=== PATIENT | female | born 1990 | race Caucasian/White ===

== ENCOUNTER → 2021-11-25 | Outpatient (CLI) | payer OTHER ==
[~2021-11-25] MED LIST: MULTI-VITAMIN1 EACH PO; VITAMIN D325 MC6 PO; ZITHROMAX500 MG PO; ZYRTEC10 MG PO
[2021-11-25 14:09] LABS: RED BLOOD COUNT 4.72 M/UL (4.00-5.10); WHITE BLOOD COUNT 12.8 K/UL (4.5-11.0)
== END ==
LOC: OPSV2 12:30
PROVIDERS: Obstetrics & Gynecology
DX: Z01.812 Encounter for preprocedural laboratory examination (principal); N91.2 Amenorrhea, unspecified
CPT/HCPCS: 36415; 85025

== ENCOUNTER → 2021-12-05 | Day surgery (SDC) | payer OTHER | END | disposition home or self-care (01) | LOC: OR 05:13 | DX: N97.9 Female infertility, unspecified (principal); F41.1 Generalized anxiety disorder; F43.10 Post-traumatic stress disorder, unspecified; N91.1 Secondary amenorrhea; Z88.0 Allergy status to penicillin; Z79.899 Other long term (current) drug therapy | CPT/HCPCS: 84703; J1100; J2250; J2405; J2704; J3010 ==